=== PATIENT | male | born 1955 | race Caucasian/White ===

== ENCOUNTER 2019-03-12 21:21 | Emergency (ER) | payer BC ==
[~2019-03-12] VITALS: Ht 182.9 cm; Wt 116.0 kg
[~2019-03-12 21:21] MED LIST: ACET325T14 PO; ANTIBIOTIC UNKNOWN; CEPH-368 PO; FINA5TAB4 PO; METO25TA35 PO; NAPR220C2 PO; TAMS-11 PO
[2019-03-12 21:25] VITALS: BP 118/89
--- NOTE | 2019-03-12 21:57 | NUR ---
PT PROVIDED URINE CUP AND STATES HE IS NOT ABLE TO URINATE AT THIS TIME.
[2019-03-12] MEDS ORDERED: hydrOXyzine 50MG TABLET ONE (21:59)
[2019-03-12 22:19] LABS: BASOPHILS # (AUTO) 0.04 x10^3/uL (0-0.1); BASOPHILS % (AUTO) 1 % (0-1); EOSINOPHILS # (AUTO) 0.39 x10^3/uL (0-0.4); EOSINOPHILS % (AUTO) 5 % (1-7); LYMPHOCYTES # (AUTO) 1.06 x10^3/uL (1-3.4); LYMPHOCYTES % (AUTO) 12 % (22-44); MD NO; MEAN CORPUSCULAR HEMOGLOBIN 28.9 pg (27.5-34.5); MEAN CORPUSCULAR HGB CONC 31.9 g/dL (33.2-36.2); MEAN CORPUSCULAR VOLUME 90.4 fL (81-97); MEAN PLATELET VOLUME 9.1 fL (7.4-10.4); MONOCYTES # (AUTO) 0.58 x10^3/uL (0.2-0.8); MONOCYTES % (AUTO) 7 % (2-9); NEUTROPHILS # (AUTO) 6.49 x10^3/uL (1.8-6.8); NEUTROPHILS % (AUTO) 76 % (42-75); PLATELET COUNT 161 x10^3/uL (130-400); RED BLOOD COUNT 5.09 x10^6/uL (4.38-5.82); RED CELL DISTRIBUTION WIDTH 15.6 % (9.4-14.8)
[2019-03-12 22:32] LABS: ALBUMIN 3.8 g/dL (3.4-5.0); ANION GAP 7 mmol/L (5-15); CALCIUM 9.3 mg/dL (8.5-10.1); CHLORIDE 107 mmol/L (98-107)
[2019-03-12 22:35] LABS: ALANINE AMINOTRANSFERASE 26 U/L (12-78); ALKALINE PHOSPHATASE 666 U/L (45-117); BILIRUBIN,TOTAL 0.6 mg/dL (0.2-1.0); CREATININE 0.88 mg/dL (0.7-1.3); TOTAL PROTEIN 7.8 g/dL (6.4-8.2)
[2019-03-12 22:53] LABS: MICROSCOPIC INDICATED
[2019-03-12 23:13] LABS: CULTURE INDICATED? YES
--- NOTE | 2019-03-12 23:38 | NUR ---
pt refusing to leave, security called to assist pt to DC
== END 2019-03-12 23:41 | disposition home or self-care (01) ==
LOC: ED 22:54
DX: R31.0 Gross hematuria (principal); B86 Scabies; Z87.891 Personal history of nicotine dependence; Z85.46 Personal history of malignant neoplasm of prostate
CPT/HCPCS: 36415; 80053; 81001; 85025; 87086; 99283; Q0177

== ENCOUNTER 2019-07-14 10:10 | Outpatient (CLI) | payer MEDICARE, BC | END 2019-07-14 23:59 | disposition home or self-care (01) | LOC: CFH 10:10 | PROVIDERS: ATTEND Internal Medicine Hematology & Oncology | DX: C61 Malignant neoplasm of prostate (principal) | CPT/HCPCS: 36415; 84153 ==